=== PATIENT | male | born 1970 | race Caucasian/White ===

== ENCOUNTER 2021-01-02 11:11 | Emergency (ER) | payer BC, OTHER ==
[2021-01-02] MEDS ORDERED: Diphtheria,Pertussis(Acell),Tetanus Vaccine 0.5 ML Syringe IM ONE (12:05)
[2021-01-02] MEDS ORDERED: Bacitracin Oint 15 GM Tube TOP ONE (12:08)
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
--- NOTE | 2021-01-02 12:40 | CR ---
Chest: Portable view of the chest was obtained. Comparison: No prior chest imaging is available. Heart size and mediastinum are normal. Lungs are clear with no acute parenchymal change. Bony structures are grossly intact. Impression: 1. Nothing acute is seen on portable chest x-ray. Diagnostic code #1
== END 2021-01-02 12:45 | disposition home or self-care (01) ==
LOC: JD.ED 11:11
DX: T59.811A Toxic effect of smoke, accidental (unintentional), initial encounter (principal); T23.241A Burn of second degree of multiple right fingers (nail), including thumb, initial encounter; T20.14XA Burn of first degree of nose (septum), initial encounter; T20.16XA Burn of first degree of forehead and cheek, initial encounter; T23.142A Burn of first degree of multiple left fingers (nail), including thumb, initial encounter; Z72.0 Tobacco use; Z88.0 Allergy status to penicillin; Z91.048 Other nonmedicinal substance allergy status; Z88.2 Allergy status to sulfonamides; Z23 Encounter for immunization
CPT/HCPCS: 16020; 71045; 90471; 90715; 99283; A9270; 99284